=== PATIENT | female | born 1975 | race Hispanic/Latino ===

== ENCOUNTER 2017-05-22 15:32 | Emergency (ER) | payer SELFPAY ==
[2017-05-22] MEDS ORDERED: ORPHENADRINE CITRATE 30 MG/ML ML ONE (16:01)
== END 2017-05-22 16:38 | disposition home or self-care (01) ==
LOC: EDH 15:32
DX: M62.838 Other muscle spasm (principal)
CPT/HCPCS: 93005; 96372; 99283; J2360

== ENCOUNTER 2019-12-16 12:30 | Emergency (ER) | payer OTHER ==
[2019-12-16 14:04] LABS: APPEARANCE,URINE Clear (CLEAR); BILIRUBIN,URINE Negative (NEGATIVE); COLOR,URINE Yellow (YELLOW); GLUCOSE, URINE (UA) Negative (NEGATIVE); KETONES,URINE Negative (NEGATIVE); LEUKOCYTE ESTERASE ,URINE Small (NEGATIVE); NITRATE,URINE Negative (NEGATIVE); OCCULT BLOOD,URINE Negative (NEGATIVE); PH,URINE 8.5 (5.0-8.0); PROTEIN,URINE Negative (NEGATIVE)
[2019-12-16 14:06] LABS: BACTERIA,URINE Moderate /HPF (None Seen); RBC,URINE 0-1 /HPF (0-1); SQUAMOUS EPITHELIAL CELL,UR Rare /HPF (0-2); WBC,URINE 0-1 /HPF (0-1)
[2019-12-16] MEDS ORDERED: KETOROLAC TROMETHAMINE 60 MG/2 ML VIAL ONE (14:06)
[2019-12-16] MEDS ORDERED: CYCLOBENZAPRINE HCL 10 MG TABLET ONE (14:06)
[2019-12-16 14:08] LABS: HCG,QUAL RESULT NEGATIVE (NEGATIVE)
== END 2019-12-16 14:58 | disposition home or self-care (01) ==
LOC: EDH 12:30
DX: M25.512 Pain in left shoulder (principal); G89.29 Other chronic pain; Z86.19 Personal history of other infectious and parasitic diseases
CPT/HCPCS: 73030; 81001; 81025; 84484; 87088; 93005; 96372; 99285; J1885